=== PATIENT | female | born 1950 | race Caucasian/White ===

== ENCOUNTER → 2017-06-04 | Outpatient (CLI) | payer OTHER ==
[2017-06-04 12:19] LABS: BASO % 0.5 %; BASO ABS # 0.05 K/uL (0-0.2); COMPLETE YES; EOS % 2.1 %; HEMATOCRIT 42.1 % (37-47); IG% 0.2 %; LYMPH % 21.3 %; MEAN CELL VOLUME 100.7 fL (80-100); MEAN CORPUSCULAR HEMOGLOBIN 32.5 pg (25-34); MEAN CORPUSCULAR HGB CONC 32.3 g/dl (32-36); MEAN PLATELET VOLUME 10.7 fL (7.4-10.4); NEUT % 68.9 %; PLATELET COUNT 307 K/uL (130-400); RED BLOOD COUNT 4.18 M/uL (4.2-5.4); WHITE BLOOD COUNT 9.38 K/uL (4.8-10.8)
[2017-06-04 12:32] LABS: ALT/SGPT 20 U/L (12-78); BLOOD UREA NITROGEN 12 mg/dl (7-18); BUN/CREATININE RATIO 18.8 (10-20); CALCIUM 9.4 mg/dl (8.5-10.1); CARBON DIOXIDE 28 mmol/L (21-32); CHLORIDE 103 mmol/L (98-107); CHOLESTEROL 251 mg/dl (0-200); CREATININE 0.66 mg/dl (0.60-1.20); GLUCOSE 94 mg/dl (70-99); POTASSIUM 4.1 mmol/L (3.5-5.1); SODIUM 137 mmol/L (136-145); TRIGLYCERIDES 248 mg/dl (0-150); VERY LOW DENSITY LIPOPROT CALC 50 mg/dl
[2017-06-04 12:35] LABS: ALKALINE PHOSPHATASE 100 U/L (45-117); AST/SGOT 17 U/L (15-37); CHOLESTEROL/HDL RATIO 3.6; HDL CHOLESTEROL 70 mg/dl; LDL CHOLESTEROL CALCULATED 131 mg/dl
[2017-06-04 12:47] LABS: URINE APPEARANCE CLEAR (CLEAR); URINE BILIRUBIN NEG (NEG); URINE COLOR YELLOW; URINE EPITHELIAL CELL AUTO 0-5 /lpf (0-5); URINE NITRITE NEG (NEG); URINE PH 6.5 (4.5-7.5); URINE SPECIFIC GRAVITY 1.005 (1.000-1.030); UROBILINOGEN NEG (NEG); ZZUR CULT IF INDIC CLEAN CATCH NO
[2017-06-04 13:03] LABS: MANUAL MICROSCOPIC REQUIRED? NO; REVIEW REQ? NO
== END | disposition home or self-care (01) ==
LOC: C.LABBFT 09:06
PROVIDERS: ATTEND Internal Medicine
DX: M85.80 Other specified disorders of bone density and structure, unspecified site (principal); E78.5 Hyperlipidemia, unspecified; J45.909 Unspecified asthma, uncomplicated; E55.9 Vitamin D deficiency, unspecified

== ENCOUNTER → 2017-07-09 | Outpatient (CLI) | payer OTHER ==
--- NOTE | 2017-07-09 10:57 | DIAGNOSTIC IMAGING REPORT ---
CT LUNG SCREENING, LOW DOSE WITH COMPUTER-AIDED DETECTION (CAD) CLINICAL HISTORY: Smoker. Lung screening CT scan. COMPARISON STUDY: No previous studies for comparison. CT DOSE: 79.39 mGycm TECHNIQUE: Low-dose helical CT was acquired without intravenous contrast from lung apices to bases and reconstructed at 2.5 mm every 2 mm. CAD was utilized for this study. A dose lowering technique was utilized adhering to the principles of ALARA. FINDINGS: Thyroid: Imaged portions of the thyroid gland are normal in appearance. Thoracic aorta: The thoracic aorta is normal in course and caliber, noting standard 3 vessel arch anatomy. Heart: There are moderate coronary artery calcifications. Lungs and pleural spaces: There are no pleural effusions. There is moderate to severe pulmonary emphysema. There is no focal pulmonary consolidation. There are no suspicious pulmonary masses. Mediastinum: There is no mediastinal lymphadenopathy. Erendira: There is no pathologic hilar adenopathy given the limitations of a noncontrast study Axilla: Clear. Upper abdomen: Partially visualized upper abdominal viscera is within normal limits. Skeletal structures: There are no lytic or blastic osseous lesions. IMPRESSION: No suspicious pulmonary nodules. 12 month follow-up is recommended. CAD FINDINGS: Overall Lung RADS Category: 1 Lung RADS Management Recommendation: Lung-RADS 1: Continue annual screening in 12 months. Lung RADS Follow Up Date: 2018-07-09 Lung RADS Nodule ID: Electronically signed by: Mick Connelly M.D. 07/09/2017 10:56 AM Dictated Date/Time: 07/09/2017 10:46 AM
== END | disposition home or self-care (01) ==
LOC: C.CTS 10:19
PROVIDERS: ATTEND Internal Medicine
DX: Z13.83 Encounter for screening for respiratory disorder NEC (principal); Z87.891 Personal history of nicotine dependence

== ENCOUNTER → 2017-12-11 | Outpatient (CLI) | payer OTHER | END | disposition home or self-care (01) | LOC: C.LABBFT 09:08 | PROVIDERS: ATTEND Internal Medicine | DX: E55.9 Vitamin D deficiency, unspecified (principal) ==

== ENCOUNTER → 2018-02-11 | Day surgery (SDC) | payer BC, OTHER ==
[2018-01-27 15:19] VITALS: BMI 35.0
[~2018-02-11] VITALS: Ht 154.9 cm; Wt 85.0 kg
[~2018-02-11] MED LIST: CHOL1TAB42 PO; LIDOCAINE HCL 2% 2 ML VIAL (20MG/ML) ONE; OMEG12006 PO; PRAV20TA PO; PROPOFOL IV EMULSION 10 MG/ML 20 ML VIAL ONE; RANI150C4 PO; SODIUM CHLORIDE 0.9% 500ML 500 ML IV ONE; UMEC1AER INH; VNTHFA/IN INH
[2018-02-11 12:19] VITALS: TEMP 36.5
[2018-02-11 12:20] VITALS: Ht 154.9 cm; Wt 85.0 kg
--- NOTE | 2018-02-11 12:43 | Endo History and Physical ---
History & Physical Date of Service: February 11, 2018. Chief Complaint: SCREENING FOR COLON CANCER Referring Physician: DR TITUS History of Present Illness 67 yo CF who presents for screening colonoscopy. Past Surgical History Hx Cardiac Surgery: No Hx Internal Defibrillator: No Hx Pacemaker: No Hx Abdominal Surgery: No Hx of Implantable Prosthesis: No Hx Post-Op Nausea and Vomiting: No Hx Cancer Surgery: No Hx Thoracic Surgery: No Hx Orthopedic: No Hx Urinary Tract Surgery: No Social History Smoking Status: Former Smoker Hx Substance Use: No Hx Alcohol Use: Yes (RARELY) Allergies Uncoded Allergies: PENICILLIN (Allergy, Unknown, COULDNT WAKE UP, 01/27/18) Current Medications Reported Home Medications Medications Dose Route/Sig Max Daily Dose Days Date Category Ventolin Hfa (Albuterol) 200 Puffs/09448 Mcg Aers 2 Puffs INH QID PRN 01/27/18 Reported Ranitidine Hcl 150 Mg Cap 1 Cap PO BID 30 01/27/18 Reported Pravachol (Pravastatin Sodium) 20 Mg Tab 20 Mg PO HS 01/27/18 Reported [place] 3 ([place]-3 Fatty Acids) 1 Cap Cap 1,000 Mg PO DAILY 01/27/18 Reported Vitamin D (Cholecalciferol) 5,000 Unit Tab 1 Tab PO DAILY 01/27/18 Reported Anoro Ellipta 62.5-25 Mcg/INH (Umeclidinium-Vilanterol) 1 Aer Aer 1 Puff INH DAILY 01/27/18 Reported Vital Signs Weight (Kilograms): 85.00 Height (Feet): 5 Height (Inches): 1 Date Time Temp Pulse Resp B/P (MAP) Pulse Ox O2 Delivery O2 Flow Rate FiO2 02/11/18 12:19 36.5 97 24 123/78 (93) 96 Room Air Physical Exam General Appearance: WD/WN, no apparent distress Respiratory/Chest: Auscultation: breath sounds normal Cardiovascular: Heart Auscultation: RRR Abdomen: Bowel Sounds: normal Inspection & Palpation: soft, non-distended, no tenderness, guarding & rebound Assessment and Plan Assessment: 67 yo CF who presents for screening colonoscopy. Plan: Proceed with colonoscopy.
--- NOTE | 2018-02-11 13:20 | Discharge Instructions ---
Endoscopy Patient Instructions Date / Procedure(s) Performed February 11, 2018. Colonoscopy Allergy Information Uncoded Allergies: PENICILLIN (Allergy, Unknown, COULDNT WAKE UP, 01/27/18) Discharge Date / Findings February 11, 2018. Colon polyp Diverticulosis Internal hemorrhoids Medication Instructions OK to resume all medications today as prescribed Reported Home Medications Medications Dose Route/Sig Max Daily Dose Days Date Category Ventolin Hfa (Albuterol) 200 Puffs/38326 Mcg Aers 2 Puffs INH QID PRN 01/27/18 Reported Ranitidine Hcl 150 Mg Cap 1 Cap PO BID 30 01/27/18 Reported Pravachol (Pravastatin Sodium) 20 Mg Tab 20 Mg PO HS 01/27/18 Reported [place] 3 ([place]-3 Fatty Acids) 1 Cap Cap 1,000 Mg PO DAILY 01/27/18 Reported Vitamin D (Cholecalciferol) 5,000 Unit Tab 1 Tab PO DAILY 01/27/18 Reported Anoro Ellipta 62.5-25 Mcg/INH (Umeclidinium-Vilanterol) 1 Aer Aer 1 Puff INH DAILY 01/27/18 Reported Provider Instructions Activity Restrictions - No exercising or heavy lifting for 24 hours. - Do not drink alcohol the day of the procedure. - Do not drive a car or operate machinery until the day after the procedure. - Do not make any important decisions or sign important papers in 24 hours after the procedure. Following Day: - Return to full activity which may include returning to work/school. Diet Start your diet with liquids and light foods (jello, soup, juice, toast). Then eat your usual diet if not nauseated. Treatment For Common After Affects For mild abdominal pain, bloating, or excessive gas: - Rest - Eat lightly - Lie on right side Follow-Up Information Follow-up with DR TITUS as scheduled Anesthesia Information What You Should Know You have had a procedure that required some medicine to reduce anxiety and discomfort. This treatment is called moderate sedation. After receiving the treatment, you may be sleepy, but you will be able to breathe on your own. The effects of the treatment may last for several hours. Follow these instructions along with Activity/Diet recommendations noted above: * Do NOT do anything where dizziness or clumsiness would be dangerous. * Rest quietly at home today, then you can be up and about tomorrow. * Have a responsible person stay with you the rest of today. * You may have had an I.V. today. If so, you may take the dressing off later today. Recommendations Call your doctor if: * Trouble breathing * Continuous vomiting for more than 24 hours * Temperature above 101 degrees * Severe abdominal pain or bloating * Pain not relieved by pain medicine ordered * There is increased drainage or redness from any incision * A large amount of rectal bleeding greater than 2-3 tablespoons. (If you had a polyp/s removed or have hemorrhoids, a small amount of blood - from the rectum is to be expected.) * You have any unanswered questions or concerns. IN THE EVENT OF A SERIOUS EMERGENCY, GO TO THE NEAREST EMERGENCY ROOM Your discharge instructions were prepared by provider Srini Lambert. Patient Instructions Signature Page Teresa Smith Patient (or Guardian) Signature/Date: I have read and understand the instructions given to me by my caregivers. Caregiver/RN/Doctor Signature/Date: The above-named patient and/or guardian has received patient instructions on this date. + Original Patient Signature Page (only) stays with chart. Please make copy for patient.
--- NOTE | 2018-02-11 13:33 | GI REPORT ---
Patient Name: Teresa Smith Procedure Date: 02/11/2018 1:00 PM Date of : 1950 Admit Type: Outpatient Age: 67 Gender: Female Attending MD: Srini Lambert DO Procedure: Colonoscopy Providers: Srini Lambert DO Referring MD: Ab Henriquez Indications: Screening for colorectal malignant neoplasm Medicines: Monitored Anesthesia Care Complications: No immediate complications. Estimated Blood Loss: Estimated blood loss: none. Procedure: Pre-Anesthesia Assessment: - Prior to the procedure, a History and Physical was performed, and patient medications and allergies were reviewed. The patient's tolerance of previous anesthesia was also reviewed. The risks and benefits of the procedure and the sedation options and risks were discussed with the patient. All questions were answered, and informed consent was obtained. Prior Anticoagulants: The patient has taken no previous anticoagulant or antiplatelet agents. ASA Grade Assessment: III - A patient with severe systemic disease. After reviewing the risks and benefits, the patient was deemed in satisfactory condition to undergo the procedure. After I obtained informed consent, the scope was passed under direct vision. Throughout the procedure, the patient's blood pressure, pulse, and oxygen saturations were monitored continuously. The scope was introduced through the anus and advanced to the terminal ileum. The colonoscopy was performed without difficulty. The patient tolerated the procedure well. The quality of the bowel preparation was good. The terminal ileum, ileocecal valve, appendiceal orifice, and rectum were photographed. Findings: The perianal and digital rectal examinations were normal. A 4 mm polyp was found in the cecum. The polyp was sessile. The polyp was removed with a cold snare. Resection and retrieval were complete. Multiple small-mouthed diverticula were found in the sigmoid colon. Non-bleeding internal hemorrhoids were found during retroflexion. The hemorrhoids were small. Impression: - One 4 mm polyp in the cecum, removed with a cold snare. Resected and retrieved. - Diverticulosis in the sigmoid colon. - Non-bleeding internal hemorrhoids. Recommendation: - Resume previous diet. - Continue present medications. - Repeat colonoscopy for surveillance based on pathology results. - Return to primary care physician as previously scheduled. Srini Lambert DO 02/11/2018 1:33:10 PM This report has been signed electronically. Note Initiated On: 02/11/2018 1:00 PM Number of Addenda: 0 I attest to the content of the Intraoperative Record and orders documented therein, exceptions below {[id number]}
[2018-02-11 14:00] VITALS: BP 96/71; PULSE 66; O2SAT 99
--- NOTE | 2018-02-11 14:17 | Anesthesiology Progress Note ---
Anesthesia Post Op Note Date & Time February 11, 2018 at 14:16 Vital Signs Pain Intensity: 0 Vital Signs Past 12 Hours Date Time Temp Pulse Resp B/P (MAP) Pulse Ox O2 Delivery O2 Flow Rate FiO2 02/11/18 14:00 66 18 96/71 (79) 99 Room Air 02/11/18 13:38 76 18 92/59 (70) 97 Room Air 02/11/18 13:23 90 16 85/53 (64) 96 Room Air 02/11/18 12:19 36.5 97 24 123/78 (93) 96 Room Air Notes Mental Status: alert / awake / arousable, participated in evaluation Pt Amnestic to Procedure: Yes Nausea / Vomiting: adequately controlled Pain: adequately controlled Airway Patency, RR, SpO2: stable & adequate BP & HR: stable & adequate Hydration State: stable & adequate Anesthetic Complications: no major complications apparent
== END | disposition home or self-care (01) ==
LOC: C.GI 12:02
PROVIDERS: ATTEND Internal Medicine
DX: Z12.11 Encounter for screening for malignant neoplasm of colon (principal); D12.0 Benign neoplasm of cecum; K57.30 Diverticulosis of large intestine without perforation or abscess without bleeding; K64.8 Other hemorrhoids; J44.9 Chronic obstructive pulmonary disease, unspecified; E78.5 Hyperlipidemia, unspecified; Z87.891 Personal history of nicotine dependence; Z80.0 Family history of malignant neoplasm of digestive organs; Z79.899 Other long term (current) drug therapy